=== PATIENT | female | born 1990 | race Caucasian/White ===

== ENCOUNTER 2016-08-18 13:54 | Emergency (ER) | payer SELFPAY ==
[~2016-08-18] VITALS: Ht 157.5 cm; Wt 43.3 kg
[~2016-08-18 13:54] MED LIST: OXYC-360 PO; Z.0.NO CURRENT MEDS
[2016-08-18 14:11] VITALS: BP 134/86; PULSE 130; RESP 18; TEMP 97.8; O2SAT 98
[2016-08-18] MEDS ORDERED: DOXY1CAP74 PO ×2 (14:18)
[2016-08-18] MEDS ORDERED: CITA10TA4 PO (14:18)
[2016-08-18] MEDS ORDERED: SODIUM CHLOR 0.9% 1000 ML INJ 1,000 ML IV ONE (14:30)
--- NOTE | 2016-08-18 14:32 | PD ---
HPI Chief Complaint: Respiratory Symptoms Time Seen by Provider: 14:19 Travel History International Travel<30 days: No Contact w/Intl Traveler<30days: No Traveled to known affect area: No History of Present Illness HPI This is a 26-year-old female who presents to the emergency department with a cough and loss of voice that started a week and a half ago. She went to an outpatient urgent care where she received prednisone and doxycycline. She got her voice back but her cough and shortness of breath and worsening. Her shortness of breath is moderate severity, constant, worse with walking. She is not bringing up any phlegm. She says at time she feels chills. She says she has trouble gaining weight. 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 She was on OCPs but that was a month ago and for months she's not been on any oral contraceptive pills. She says she took Benadryl last night but otherwise hasn't used any medications today. PFSH Past Medical History Anxiety: Yes Depression: Yes Diminished Hearing: No Medical other: Yes (TMJ) Respiratory: Yes (hx of pneumonia) ?: Not LMP: 08/03/16 Past Surgical History Oral Surgery: Yes (WISDOM) Other Surgery: Yes (TMJ) Social History Alcohol Use: No Tobacco Use: No Substance Use: No Allergies-Medications (Allergen,Severity, Reaction): Coded Allergies: No Known Allergies (Verified , 08/18/16) Reported Meds & Prescriptions Reported Meds & Active Scripts Active Reported Citalopram (Citalopram Hydrobromide) 10 Mg Tab 10 Mg PO DAILY Doxycycline 40 Mg Cap 40 Mg PO BID Review of Systems Except as stated in HPI: all other systems reviewed are Neg Physical Exam Narrative GENERAL:Well appearing, no acute distress SKIN: Warm and dry. HEAD: Atraumatic. Normocephalic. EYES: Pupils equal and round. No injection or drainage. ENT: Moist mucous membranes NECK: Trachea midline. CARDIOVASCULAR: Tachycardic. No murmur appreciated. RESPIRATORY: Clear to auscultation. Breath sounds equal bilaterally. GASTROINTESTINAL: Abdomen soft, non-tender, nondistended. MUSCULOSKELETAL: No obvious deformities. NEUROLOGICAL: Awake and alert. No obvious cranial nerve deficits. Moving all extremities. PSYCHIATRIC: Appropriate mood and affect; insight and judgment normal. Data Data Last Documented VS Vital Signs Date Time Temp Pulse Resp B/P Pulse Ox O2 Delivery O2 Flow Rate FiO2 08/18/16 15:29 104 20 113/60 98 Room Air 08/18/16 14:11 97.8 Orders Complete Blood Count With Diff (08/18/16 14:27) Comprehensive Metabolic Panel (08/18/16 14:27) ^ Insert Iv (08/18/16 14:27) Troponin I (08/18/16 14:27) Chest, Single Ap (08/18/16 ) Urinalysis - C+S If Indicated (08/18/16 14:27) Ed Urine Pregnancytest Poc (08/18/16 14:27) Thyroid Stimulating Hormone (08/18/16 14:27) Sodium Chlor 0.9% 1000 Ml Inj (Ns 1000 M (08/18/16 14:30) Influenzae A/B Antigen (08/18/16 14:29) Electrocardiogram (08/18/16 14:20) Albuterol Concentrated Neb (Albuterol Co (08/18/16 15:30) Labs Laboratory Tests Test 08/18/16 08/18/16 14:30 14:58 White Blood Count 13.3 TH/MM3 Red Blood Count 5.20 MIL/MM3 Hemoglobin 15.3 GM/DL Hematocrit 45.4 % Mean Corpuscular Volume 87.4 FL Mean Corpuscular Hemoglobin 29.4 PG Mean Corpuscular Hemoglobin 33.6 % Concent Red Cell Distribution Width 11.4 % Platelet Count 226 TH/MM3 Mean Platelet Volume 7.7 FL Neutrophils (%) (Auto) 83.6 % Lymphocytes (%) (Auto) 7.3 % Monocytes (%) (Auto) 6.4 % Eosinophils (%) (Auto) 2.5 % Basophils (%) (Auto) 0.2 % Neutrophils # (Auto) 11.1 TH/MM3 Lymphocytes # (Auto) 1.0 TH/MM3 Monocytes # (Auto) 0.9 TH/MM3 Eosinophils # (Auto) 0.3 TH/MM3 Basophils # (Auto) 0.0 TH/MM3 CBC Comment DIFF FINAL Differential Comment Sodium Level 139 MEQ/L Potassium Level 3.5 MEQ/L Chloride Level 103 MEQ/L Carbon Dioxide Level 25.1 MEQ/L Anion Gap 11 MEQ/L Blood Urea Nitrogen 7 MG/DL Creatinine 0.61 MG/DL Estimat Glomerular Filtration 119 ML/MIN Rate Random Glucose 112 MG/DL Calcium Level 8.9 MG/DL Total Bilirubin 1.0 MG/DL Aspartate Amino Transf 15 U/L (AST/SGOT) Alanine Aminotransferase 22 U/L (ALT/SGPT) Alkaline Phosphatase 71 U/L Troponin I LESS THAN 0.02 NG/ML Total Protein 7.4 GM/DL Albumin 3.7 GM/DL Thyroid Stimulating Hormone 0.904 uIU/ML 3rd Gen Urine Color YELLOW Urine Turbidity HAZY Urine pH 7.5 Urine Specific [place] 1.010 Urine Protein NEG mg/dL Urine Glucose (UA) NEG mg/dL Urine Ketones NEG mg/dL Urine Occult Blood MOD Urine Nitrite NEG Urine Bilirubin NEG Urine Leukocyte Esterase NEG Urine RBC 0-3 /hpf Urine WBC 0-2 /hpf Urine Squamous Epithelial 0-5 /hpf Cells Microscopic Urinalysis Comment CULT NOT INDICATED MDM Medical Decision Making Medical Screen Exam Complete: Yes Emergency Medical Condition: Yes Interpretation(s) Afebrile, tachycardic, normotensive Leukocytosis with left shift Electrolytes are reassuring Troponin is normal TSH is normal Urinalysis: No infection Chest x-ray: No acute process EKG: Sinus tachycardia Differential Diagnosis Bronchitis, pneumonia, dehydration, hyperthyroidism, pulmonary embolism Narrative Course This is a 26-year-old female who presents to the emergency department with a persistent cough over the past week and a half. She has a history of recurrent bronchitis. She's completed doxycycline and prednisone but her cough is just been getting worse. She is placed on a monitor and an IV was established. She is found to be quite tachycardic. She is given 2 L of IV hydration and her tachycardia resolved. She was given a bronchodilator treatment which improved her symptoms. TSH was reassuring. Otherwise labs are reassuring except for a mild leukocytosis which is expected in the setting of her illness. I suspect she has a bronchitis. She is not improved despite a course of doxycycline and given her appearance I think it's reasonable to start her on a broader antibiotic for possible occult pneumonia. The patient was discharged on Levaquin. I did advise her of the risks of tendon rupture. Diagnosis Primary Impression: Bronchitis Patient Instructions: General Instructions Additional Instructions: If you develop severe shortness of breath, chest pain, or difficulty breathing return to the emergency department. Use albuterol every 4 hours for the next 2 days as needed Complete your course of antibiotics. Drink lots of fluids. Follow up with your primary care physician in 2-3 days if your symptoms have not improved. Med/Other Pt SpecificInfo: Prescription(s) given Scripts Levofloxacin (Levaquin)500 Mg Thx948 Mg PO DAILY 7 Days Ref 0 Prov:Roya Dangelo MD 08/18/16 Disposition: 01 DISCHARGE HOME Condition: Stable Roya Dangelo MD Aug 18, 2016 14:32
[2016-08-18 14:51] LABS: CHLORIDE 103 MEQ/L (98-107); POTASSIUM 3.5 MEQ/L (3.5-5.1); SODIUM (NA) 139 MEQ/L (136-145)
[2016-08-18 14:55] LABS: ANION GAP 11 MEQ/L (5-15); BICARBONATE 25.1 MEQ/L (21.0-32.0); BLOOD UREA NITROGEN 7 MG/DL (7-18)
[2016-08-18 14:58] LABS: ALT (GPT) 22 U/L (10-53); AST (GOT) 15 U/L (15-37); GLOMERULAR FILTRATION RATE 119 ML/MIN (>89)
[2016-08-18 15:01] LABS: ALKALINE PHOSPHATASE 71 U/L (45-117)
--- NOTE | 2016-08-18 15:05 | RADHPO ---
EXAM DATE/TIME: 08/18/2016 14:40 [facility] COMPARISON: No previous studies available for comparison. INDICATIONS : Cough. MEDICAL HISTORY : None. SURGICAL HISTORY : None. ENCOUNTER: Initial ACUITY: 2 weeks PAIN SCORE: 0/10 LOCATION: Bilateral chest FINDINGS: A single view of the chest demonstrates the lungs to be symmetrically aerated without evidence of mas s, infiltrate or effusion. The cardiomediastinal contours are unremarkable. Osseous structures are intact. CONCLUSION: No acute disease. Mendez Oliver MD FACR on August 18, 2016 at 15:03 Board Certified Radiologist. This report was verified electronically.
[2016-08-18 15:06] LABS: GLUCOSE,URINE NEG (NEG); KETONE, URINE NEG (NEG); NITRITE,URINE NEG (NEG); PH, URINE 7.5 (5.0-8.5)
[2016-08-18 15:06] LABS: AUTOMATED NEUTROPHIL # 11.1 TH/MM3 (1.8-7.7); BASOPHIL % 0.2 % (0.0-2.0); EOSINOPHIL # 0.3 TH/MM3 (0-0.4); EOSINOPHIL % 2.5 % (0.0-4.0); HEMATOCRIT 45.4 % (35.0-46.0); LYMPH % 7.3 % (9.0-44.0); MEAN CELL VOLUME 87.4 FL (80.0-100.0); MEAN CORPUSCULAR HEMOGLOBIN 29.4 PG (27.0-34.0); MEAN CORPUSCULAR HGB CONC 33.6 % (32.0-36.0); MONO % 6.4 % (0.0-8.0); NEUT % 83.6 % (16.0-70.0); PLATELET COUNT 226 TH/MM3 (150-450); RED CELL DISTRIBUTION WIDTH 11.4 % (11.6-17.2); WHITE BLOOD COUNT 13.3 TH/MM3 (4.0-11.0)
[2016-08-18 15:08] LABS: BLOOD, URINE MOD (NEG)
[2016-08-18 15:10] LABS: URINE COLOR YELLOW (YELLW/STRAW)
[2016-08-18 15:11] LABS: HEMO FLAGS DIFF FINAL
[2016-08-18 15:12] LABS: COMMENT (UR) CULT NOT INDICATED; CULTURE IF INDICATED CULT NOT INDICATED; RBC, URINE 0-3 /hpf (0-3); SQUAMOUS EPITHELIAL CELL URINE 0-5 /hpf (0-5); WBC, URINE 0-2 /hpf (0-5)
[2016-08-18 15:29] VITALS: BP 113/60; PULSE 104; RESP 20; O2SAT 98
[2016-08-18] MEDS ORDERED: RESP: ALBUTEROL CONC 2.5 MG/0.5 ML NEB NEB ONE (15:30)
[2016-08-18] MEDS ORDERED: LEVA500T PO (16:15)
[2016-08-18] MEDS ORDERED: CEFD300C PO (16:16)
[2016-08-18] MEDS ORDERED: AZIT250T3 PO (16:16)
[2016-08-18 16:47] VITALS: BP 104/61
--- NOTE | 2016-08-19 16:49 | EKG ---
Date Performed: 08/18/2016 Time Performed: 14:20:50 PTAGE: 26 years EKG: Sinus tachycardia. Possible right atrial abnormality Right axis deviation Possible lateral infarct - age undetermined Inferior ST-T changes are nonspecific Clinical correlation is recommended Abnormal ECG NO PREVIOUS TRACING DOCTOR: Dirk Anne Interpretating Date/Time 08/19/2016 16:48:06
== END 2016-08-18 17:04 | disposition home or self-care (01) ==
LOC: PHED 13:54
DX: J40 Bronchitis, not specified as acute or chronic (principal); R06.02 Shortness of breath; R00.0 Tachycardia, unspecified
CPT/HCPCS: 71010; 80053; 81001; 84443; 84484; 84703; 85025; 87804; 93005; 94664; 96360; 99284; J7030; J7611

== ENCOUNTER 2018-08-06 08:52 | Inpatient (IN) ==
[2018-08-06] MEDS ORDERED: Oxytocin 30 Units/500ml Premix 30 UNITS/500 ML BAG IV.SIG ONE (09:29)
[2018-08-06] MEDS ORDERED: fentaNYL Citrate Inj 100 MCG/2 ML Ampul IV.PUSH PRN ×2 (09:29)
[2018-08-06] MEDS ORDERED: Naloxone Inj 0.4 MG/ML Vial IV.PUSH PRN ×2 (09:29→17:58)
[2018-08-06] MEDS ORDERED: Sod Chloride 0.9% Inj 1,000 ML IV.CONT PRN (09:29)
[2018-08-06] MEDS ORDERED: Sodium Chlor 0.9% Inj 500 ML IV.SIG PRN (09:29)
[2018-08-06] MEDS ORDERED: Citric Acid/Sodium Citrate Liq 30 ML UDC PO SCH (09:30)
--- NOTE | 2018-08-06 09:41 | P.HPOB ---
Patient Name: Brianna Ibarra Date of : 89 Patient Status: Inpatient Attending Provider: Luanne Edwards Date: 08/06/18 09:40 Initialization Date: 08/06/18 09:31 History of Present Illness Service: [facility] [place] Primary Care Physician: Didi Gresham MD Chief Complaint: Contractions History of Present Illness: This 27 y/o female G1, EDC 08/10/18, EGA 39 3/7 wks presents with c/o ctxs since 5 AM. +FM, No VB, No LOF. She denies probs during the . She has had PNC with Dr. Edwards. Weeks Gestation:: 39 Para: 0 : 1 Review of Systems All other systems reviewed negative except as stated in HPI PMFSH - History History Provided By: Patient - Medical History Medical History: Medical History (Last Updated 08/06/18 @ 09:33 by Brianna Cano DO) Hx of temporomandibular joint disorder Hypothyroidism - Social History I have reviewed the patient's Social History: Yes - Tobacco History Smoking Status: Never smoker - Alcohol History How Often Do You Have a Drink Containing Alcohol: Never - Substance Use History Substance History: No History of Abuse - Travel History History of Recent Travel: No Medications and Allergies Allergies Allergy/AdvReac Type Severity Reaction Status Date / Time No Known Allergies Allergy Mild Uncoded 08/18/16 14:13 Home Medications Medication Instructions Recorded Confirmed Type PNV cmb#95-ferrous fumarate-FA DAILY 08/06/18 History [] Synthroid 137 mcg PO DAILY 08/06/18 08/06/18 History Exam Vital signs: Vital Signs 08/06/18 09:13 Temperature 98.6 F Pulse Rate 79 Respiratory Rate 18 Blood Pressure 136/83 Narrative: GENERAL: Well-nourished, well-developed patient. SKIN: Warm and dry. HEAD: Normocephalic and atraumatic. EYES: No scleral icterus. No injection or drainage. ENT: No nasal drainage noted. Mucous membranes pink. Airway patent. NECK: Supple, trachea midline. No JVD. CARDIOVASCULAR: Regular rate and rhythm without murmurs, gallops, or rubs. RESPIRATORY: Breath sounds equal bilaterally. No accessory muscle use. ABDOMEN/GI: Abdomen soft, non-tender, bowel sounds present, no rebound, no guarding Gravid GENITOURINARY: External Genitalia: intact and normal in appearance BUS glands: [Normal] Cervix: [Mid] Dilatation: [6] Effacement: [90] Station: [-1] Presentation: [vtx] Membranes: [intact] Uterine Contractions: [every 2-3 min] FHT's: Category: [1] Baseline: [120] Reactive: [Yes] Variability: [Mod] Decels: [None] +Accels EXTREMITIES: No cyanosis or edema. BACK: Nontender without obvious deformity. No CVA tenderness. NEUROLOGICAL: Awake and alert. Motor and sensory grossly within normal limits. Five out of 5 muscle strength in all muscle groups. Normal speech. Results - Labs Group B Strep: Negative Assessment and Plan - Diagnosis (1) Uterine contractions during Code(s): O62.2 - Other uterine inertia Status: Acute (2) 39 weeks gestation of Code(s): Z3A.39 - 39 weeks gestation of Status: Acute - Plan Admit in labor Discussed with Dr. Gomez who is end user consultant for Dr. Edwards Discharge Plan - Physicians Team ED Provider: Brianna Cano Primary Care Provider: Didi Gresham - Rxs /Orders / Referrals /Forms Prescriptions: No Action PNV cmb#95-ferrous fumarate-FA [] 28 mg iron- 800 mcg Tablet DAILY Synthroid 137 mcg 137 mcg PO DAILY - Discharge Instructions Print Language: Indonesian
[2018-08-06 09:47] LABS: Baso % (Auto) 0.5 % (0.0-2.0); Eos % (Auto) 0.5 % (0.0-4.0); Hematocrit 38.6 % (35.0-46.0); Hemoglobin 13.3 gm/dL (11.6-15.3); Lymph # (Auto) 0.9 th/mm3 (1.0-4.8); Lymph % (Auto) 10.8 % (9.0-44.0); Mean Corpuscular HGB Conc 34.5 % (32.0-36.0); Mean Corpuscular Hemoglobin 29.1 pg (27.0-34.0); Mean Corpuscular Volume 84.5 fL (80.0-100.0); Mean Platelet Volume 9.2 fL (7.0-11.0); Mono # (Auto) 0.4 th/mm3 (0.0-0.9); Mono % (Auto) 4.5 % (0.0-8.0); Neut % (Auto) 83.7 % (16.0-70.0); Platelet Count 157 th/mm3 (150-450); Red Blood Count 4.57 mil/mm3 (4.00-5.30); Red Cell Distribution Width 14.5 % (11.6-17.2); White Blood Count 8.3 th/mm3 (4.0-11.0)
[2018-08-06 10:10] LABS: Bilirubin,Urine Negative (Negative); Clarity,Urine Clear (Clear); Color,Urine Straw (Yellw/Straw); Glucose,Urine (UA) Negative (Negative); Leukocyte Esterase,Urine Negative (Negative); Nitrite,Urine Negative (Negative); Specific Gravity,Urine 1.008 (1.002-1.035); Squamous Epithelial Cell,Urine 4 /hpf (0-5)
[2018-08-06 12:46] VITALS: RESP 18
--- NOTE | 2018-08-06 15:46 | P.OBGPN ---
S: Doing well, painful contractions, leakage of fluid, O: Exam: 8 to 9/90%/-1/ruptured fore bag FHTs: 120s, moderate variability, accelerations present, no decelerations TOCO: Contractions every 3-5 minutes A/P 27-year-old G1 at 39 weeks and 3 days admitted for labor 1. IUP: Category 1 tracing -Male fetus, "Benji" approximately 6.5-7.0 pounds, cephalic by exam, posterior placenta, 2. Labor: Progressing, anticipate , status post 4 back rupture this exam at 1503, continue expectant management, reviewed patient's preferences. Patient okay with active management of the third stage 3. Hypothyroidism: Continue home medication, will check TSH , last on record 01/15/2019
[2018-08-06] MEDS ORDERED: Measles/Mumps/Rubella Vaccine Inj 0.5 ML Vial SQ ONE ×2 (16:00→20:00)
[2018-08-06] MEDS ORDERED: Witch Hazel 50%/Glyderin 12.5% 40 Pad Jar RECTAL PRN (17:58)
[2018-08-06] MEDS ORDERED: Bisacodyl 10 MG Supp RECTAL PRN (17:58)
[2018-08-06] MEDS ORDERED: Oxytocin 30 Units/500ml Premix 30 UNITS/500 ML BAG IV.CONT PRN (17:58)
[2018-08-06] MEDS ORDERED: Benzocaine 20% Top Spray 60 ML Can TOPICAL PRN (17:58)
[2018-08-06] MEDS ORDERED: Acetaminophen 325 MG Tablet PO PRN (17:58)
--- NOTE | 2018-08-06 18:04 | P.OP ---
Surgeon: Marcus Gomez MD Operation and Findings: Preoperative diagnosis: 1. Intrauterine at 39 weeks and 3 days 2. Hypothyroidism Postop diagnosis 1. Same as above status post delivery Procedure 1. Term spontaneous vaginal delivery Surgeon Dr. Marcus Gomez Finishing Room Operator: Magdi labor and delivery nursing staff Findings: 1. Viable male infant at 1724, Apgars 9 and 9, weight 3345g. Nuchal cord x1 reduced after delivery 2. Intact placenta 3 vessel cord at 1732 3. Second-degree perineal laceration, right sulcal vaginal laceration extending 2-3 inches cephalad of the hymen Anesthesia: 8-10 cc of 1% lidocaine without epinephrine for repair Specimen: Placenta to disposal Estimated blood loss: 300 cc Fluid replacement: Lactated Ringer's and Pitocin Urine output: None recorded DVT prophylaxis: None required Antibiotics: None required Counts: correct x2 Time out done: yes Disposition: Stable to PACU then home Indications: Patient is a 27-year-old G1 who presented in labor, she spontaneously ruptured, progressed to complete with reassuring heart tones, she pushed for 2 hours and I was called to the room for delivery. Description of procedure: The patient began pushing after the bed was broken down, the head upon was allowed to restitute naturally for delivery with a supported perineum, with gentle downward guidance the anterior shoulder was delivered followed by gentle upper guidance for the posterior shoulder, the torso and lower extremities were delivered with ease and with continued perineal support. A single nuchal cord was reduced after delivery, the infant had spontaneous cry and was placed on mom's abdomen for skin to skin contact, we allowed delayed cord clamping. After the cord was clamped and cut, cord blood was obtained. Pitocin was bolused and with fundal massage the placenta was delivered, there is minimal uterine bleeding and uterus was firm. The perineum, vagina and cervix were inspected and found a second-degree laceration is repaired with 3-0 Vicryl in the standard fashion, a right vaginal sulcal laceration was repaired with running locking 3-0 Vicryl. The patient tolerated the procedure well and was left in the birthing suite with her .
[2018-08-06] MEDS ORDERED: Diphtheria/Tetanus/Pertussis Vaccine Inj 0.5 ML Syringe IM ONE (20:00)
[2018-08-06] MEDS ORDERED: Zolpidem Tartrate 5 MG Tablet PO PRN (21:00)
--- NOTE | 2018-08-07 05:05 | P.PNOB ---
Subjective Post day: 1 Interval history: doing well, pain controlled, VB < menses, tolerating diet, voiding, Objective Vital Signs/I&O: Vital Signs 08/06/18 09:13 08/06/18 10:57 08/06/18 11:30 Temperature 98.6 F Pulse Rate 79 82 Respiratory Rate 18 19 20 Blood Pressure 136/83 135/73 08/06/18 12:45 08/06/18 13:54 08/06/18 14:17 Temperature Pulse Rate 79 Respiratory Rate 18 18 18 Blood Pressure 141/75 H 08/06/18 14:19 08/06/18 14:45 08/06/18 20:33 Temperature 97.5 F L 98.1 F Pulse Rate 75 64 Respiratory Rate 18 18 Blood Pressure 156/72 H 111/75 Intake & Output 08/06/18 08/06/18 08/07/18 06:59 18:59 06:59 Weight 63 kg Other: Weight On Admission 63 kg Result Diagrams: 08/06/18 09:34 Objective Remarks: GENERAL: Well-nourished, well-developed patient. CARDIOVASCULAR: Regular rate and rhythm without murmurs, gallops, or rubs. RESPIRATORY: Breath sounds equal bilaterally. No accessory muscle use. ABDOMEN/GI: Abdomen soft, non-tender. Fundus: Firm, non-tender at umbilicus. GENITOURINARY: Light to moderate bleeding. EXTREMITIES: No cyanosis or edema, non-tender, without signs of DVT. Medications and IVs: Active Medications Acetaminophen (Tylenol) 650 mg PO Q4H PRN PRN Reason: PAIN SCALE 1 TO 2 Al Hydroxide/Mg Hydroxide (Milk Of Magnesia Liq) 30 ml PO Q12H PRN PRN Reason: Mild Constipation Benzocaine (Americaine 20% Top [place]) 1 spray TOPICAL Q4H PRN PRN Reason: For Perineum Discomfort Last Admin: 08/06/18 23:14 Dose: 1 spray Bisacodyl (Dulcolax Supp) 10 mg RECTAL DAILY PRN PRN Reason: SEVERE CONSITIPATION Oxytocin (Pitocin 30 Units/Ns 500 Ml Premix) 30 units in 500 mls @ 100 mls/hr IV.CONT UNSCH PRN PRN Reason: Heavy bleeding Ibuprofen (Motrin) 800 mg PO Q8H PRN PRN Reason: For Cramping Lactulose (Lactulose Liq) 30 ml PO DAILY PRN PRN Reason: SEVERE CONSITIPATION Levothyroxine Sodium (Synthroid) 112 mcg PO DAILY@0600 JUN Levothyroxine Sodium (Synthroid) 25 mcg PO DAILY@0600 JUN Naloxone HCl (Narcan Inj) 0.1 mg IV.PUSH Q2M PRN PRN Reason: for opiate reversal Ondansetron HCl (Zofran Odt) 4 mg PO Q6H PRN PRN Reason: NAUSEA OR VOMITING Vit/Calcium/Iron/Folic Ac (Stuartnatal Plus 3) 1 tab PO DAILY JUN Senna/Docusate Sodium (Joleen-Colace) 1 tab PO BID JUN Sennosides (Senokot) 17.2 mg PO Q12H PRN PRN Reason: Moderate Constipation Sodium Chloride (Ns Flush) 2 ml IV.FLUSH BID JUN Sodium Chloride (Ns Flush) 2 ml IV.FLUSH PRN PRN PRN Reason: FLUSH AFTER USING IV ACCESS Witch Jen/Glycerin (Tucks Pads) 1 applicatio RECTAL QID PRN PRN Reason: HEMORRHOIDS Last Admin: 08/06/18 23:14 Dose: 1 applicatio Zolpidem Tartrate (Ambien) 5 mg PO HS PRN PRN Reason: SLEEP Assessment and Plan - Plan 27-year-old s/p at 39 weeks and 3 days 1. PPD #1: doing well, continue routine care, likely d/c home next 24hrs - male, desires circ, will do once baby voids 2. Hypothyroidism: Continue home Synthroid, AM TSH WNL,
[2018-08-07] MEDS: Levothyroxine 112 MCG Tablet PO SCH (06:50)
[2018-08-07] MEDS: Prenatal Vit/Ca/Iron/Folic Acid Tablet PO SCH (08:45)
[2018-08-07] MEDS: Senna/Docusate Sodium 8.6/50 MG Tablet PO SCH ×3 (08:46→20:54)
[2018-08-07] MEDS ORDERED: SYNTHROID 137 MCG PO SCH (09:00)
[2018-08-08] MEDS: Levothyroxine 112 MCG Tablet PO SCH (06:04)
--- NOTE | 2018-08-08 08:49 | P.PNOB ---
Subjective Post day: 2 Interval history: doing well, ready for d/c home Objective Vital Signs/I&O: Vital Signs 08/07/18 20:00 Temperature 98.3 F Pulse Rate 75 Respiratory Rate 18 Blood Pressure 110/78 Result Diagrams: 08/06/18 09:34 Objective Remarks: GENERAL: Well-nourished, well-developed patient. CARDIOVASCULAR: Regular rate and rhythm without murmurs, gallops, or rubs. RESPIRATORY: Breath sounds equal bilaterally. No accessory muscle use. ABDOMEN/GI: Abdomen soft, non-tender. Fundus: Firm, non-tender at umbilicus. GENITOURINARY: Light to moderate bleeding. EXTREMITIES: No cyanosis or edema, non-tender, without signs of DVT. Medications and IVs: Active Medications Acetaminophen (Tylenol) 650 mg PO Q4H PRN PRN Reason: PAIN SCALE 1 TO 2 Last Admin: 08/07/18 08:45 Dose: 650 mg Al Hydroxide/Mg Hydroxide (Milk Of Magnesia Liq) 30 ml PO Q12H PRN PRN Reason: Mild Constipation Benzocaine (Americaine 20% Top [place]) 1 spray TOPICAL Q4H PRN PRN Reason: For Perineum Discomfort Last Admin: 08/06/18 23:14 Dose: 1 spray Bisacodyl (Dulcolax Supp) 10 mg RECTAL DAILY PRN PRN Reason: SEVERE CONSITIPATION Oxytocin (Pitocin 30 Units/Ns 500 Ml Premix) 30 units in 500 mls @ 100 mls/hr IV.CONT UNSCH PRN PRN Reason: Heavy bleeding Ibuprofen (Motrin) 800 mg PO Q8H PRN PRN Reason: For Cramping Last Admin: 08/07/18 17:26 Dose: 800 mg Lactulose (Lactulose Liq) 30 ml PO DAILY PRN PRN Reason: SEVERE CONSITIPATION Levothyroxine Sodium (Synthroid) 112 mcg PO DAILY@0600 [facility] Last Admin: 08/08/18 06:04 Dose: 112 mcg Levothyroxine Sodium (Synthroid) 25 mcg PO DAILY@0600 [facility] Last Admin: 08/08/18 06:05 Dose: 25 mcg Naloxone HCl (Narcan Inj) 0.1 mg IV.PUSH Q2M PRN PRN Reason: for opiate reversal Ondansetron HCl (Zofran Odt) 4 mg PO Q6H PRN PRN Reason: NAUSEA OR VOMITING Vit/Calcium/Iron/Folic Ac (Stuartnatal Plus 3) 1 tab PO DAILY [facility] Last Admin: 08/07/18 08:45 Dose: 1 tab Senna/Docusate Sodium (Joleen-Colace) 1 tab PO BID [facility] Last Admin: 08/07/18 20:54 Dose: 1 tab Sennosides (Senokot) 17.2 mg PO Q12H PRN PRN Reason: Moderate Constipation Sodium Chloride (Ns Flush) 2 ml IV.FLUSH BID [facility] Last Admin: 08/08/18 00:24 Dose: Not Given Sodium Chloride (Ns Flush) 2 ml IV.FLUSH PRN PRN PRN Reason: FLUSH AFTER USING IV ACCESS Witch Jen/Glycerin (Tucks Pads) 1 applicatio RECTAL QID PRN PRN Reason: HEMORRHOIDS Last Admin: 08/06/18 23:14 Dose: 1 applicatio Zolpidem Tartrate (Ambien) 5 mg PO HS PRN PRN Reason: SLEEP Assessment and Plan - Plan 27-year-old s/p at 39 weeks and 3 days 1. PPD #2: doing well, d/c home today - male, s/pc circ today, 2. Hypothyroidism: Continue home Synthroid
[2018-08-08] MEDS: Prenatal Vit/Ca/Iron/Folic Acid Tablet PO SCH (09:26)
[2018-08-08 12:57] VITALS: BP 125/84; PULSE 96; TEMP 98
== END 2018-08-08 14:14 | disposition home or self-care (01) | DRG 807 ==
LOC: HOBED 08:52 → H2E 09:29 → H1EA 19:41
PROVIDERS: ADMIT Obstetrics & Gynecology; ATTEND Obstetrics & Gynecology